=== PATIENT | female | born 2000 | race Caucasian/White ===

== ENCOUNTER 2021-07-14 08:08 | Emergency (ER) | payer BC, MEDICAID, OTHER ==
[~2021-07-14] VITALS: Ht 149.9 cm; Wt 127.0 kg
[2021-07-14] MEDS ORDERED: NS IV 1000 ML 1,000 ML IV STA ×2 (08:26→09:51)
[2021-07-14] MEDS ORDERED: KETOROLAC 30 MG/ML VIAL IVP STA (08:26)
[2021-07-14] MEDS ORDERED: diphenhydrAMINE 50 MG/ML INJ (BENADRYL) IVP STA (08:26)
[2021-07-14] MEDS ORDERED: METOCLOPRAMIDE INJ 10 MG/2 ML (REGLAN) IVP STA (08:26)
--- NOTE | 2021-07-14 08:33 | ED General ---
General Chief Complaint: Back Problems Stated Complaint: BACK PAIN; HEADACHE Source of Information: Patient History of Present Illness Date Seen by Provider: Jul 14, 2021 Time Seen by Provider: 08:10 Initial Comments 21-year-old female presenting with complaints of 2 days of severe left-sided headache with photophobia. She states that she has had headaches like this when she was younger and was told that they were migraines. She is adopted and states she does not know any other personal medical history because she was adopted. She also was removed from all medical coverage by her mom and she moved from [place] to [place]. She states that in 2020 she did have a head injury from when she was in [facility]. She had hit her head on a metal headboard. She denies any recent trauma to trigger her headache or back pain. She states that 2 days ago she was babysitting when her headache started. She has taken [id number] "pain reliever" but does not know that is in the medicine. She just came off of her menstrual cycle in the last week and it was normal for her. She denies pain or burning with urination. She has pain to the left flank going down to her LLQ and lower abdomen/suprapubic area. She denies any vaginal discharge, bleeding, dysuria, change in bowels or bladder, previous abdominal surgery. She has had nausea and felt that she throws up in her mouth when she burps but then she swallows it back down again. She had gone to Urgent Care yesterday and they gave her a shot of something for nausea, pain and a Benadryl shot. She stated that it made her tired and she fell asleep on her brother's floor and then at her mother's house. She woke up at 5 am feeling like her whole body was on fire and she went and soaked in the tub. She does not have a thermometer so she did not take her temperature. She was feeling a little dizzy yesterday but denies dizziness currently. Timing/Duration: 2-3 Days Severity: Severe Modifying Factors: worse with Other (bright lights make her headache worse) Associated Systoms: No Chest Pain, No Cough, No Diaphoresis, No Fever/Chills; Headaches (left sided); No Loss of Appetite, No Malaise; Nausea/Vomiting; No Rash, No Seizure, No Shortness of Air, No Syncope, No Weakness Allergies and Home Medications Allergies Coded Allergies: No Known Drug Allergies (Unverified , 07/14/21) Patient Home Medication List Home Medication List Reviewed: Yes Review of Systems Review of Systems Constitutional: see HPI; No chills, No diaphoresis; dizziness (yesterday and early this am); No fever EENTM: see HPI; No ear discharge, No ear pain, No blurred vision, No double vision, No vision loss, No epistaxis, No nose congestion Respiratory: no symptoms reported Cardiovascular: no symptoms reported Gastrointestinal: see HPI Genitourinary: see HPI Musculoskeletal: see HPI, back pain (left flank pain wrapping around to lower abdomen) Skin: no symptoms reported Psychiatric/Neurological: See HPI; Denies Numbness, Denies Paresthesia, Denies Weakness Hematologic/Lymphatic: Denies Blood Clots Past Sokqxue-Amndlz-Lymmxk Hx Past Medical History Surgery/Hospitalization HX: Migraine Headaches, Obesity Surgeries: No Physical Exam Vital Signs Vital Signs - First Documented 07/14/21 08:14 Temp 37.1 Pulse 122 Resp 18 B/P (MAP) 136/100 (112) Pulse Ox 98 O2 Delivery Room Air Capillary Refill : Height, Weight, BMI Height: '" Weight: lbs. oz. kg; BMI Method: General Appearance: No Apparent Distress, Obese HEENT: PERRL/EOMI, Pharynx Normal Neck: Full Range of Motion, Normal Inspection, Non Tender, Supple Respiratory: Chest Non Tender, Lungs Clear, Normal Breath Sounds, No Accessory Muscle Use, No Respiratory Distress Cardiovascular: Normal Peripheral Pulses, Tachycardia Gastrointestinal: Normal Bowel Sounds, No Pulsatile Mass, Soft; No Distended, No Guarding, No Rebound; Tenderness (complaint of pain to left flank and lower abdomen in LLQ and suprapubic area) Rectal: Deferred Back: No CVA Tenderness Extremity: Normal Capillary Refill, Normal Inspection, No Calf Tenderness, No Pedal Edema Neurologic/Psychiatric: Alert, Oriented x3, No Motor/Sensory Deficits, 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 Norm as Tested Skin: Normal Color, Warm/Dry; No Rash Progress/Results/Core Measures Suspected Sepsis SIRS Temperature: Pulse: Respiratory Rate: Laboratory Tests 07/14/21 08:44: White Blood Count 6.9 Blood Pressure / Mean: Laboratory Tests 07/14/21 08:44: Creatinine 0.76, Platelet Count 376, Total Bilirubin 0.5 Results/Orders Lab Results Laboratory Tests Test 07/14/21 08:44 07/14/21 09:11 Range/Units White Blood Count 6.9 4.3-11.0 10^3/uL Red Blood Count 4.91 3.80-5.11 10^6/uL Hemoglobin 12.5 11.5-16.0 g/dL Hematocrit 40 35-52 % Mean Corpuscular Volume 82 80-99 fL Mean Corpuscular Hemoglobin 26 25-34 pg Mean Corpuscular Hemoglobin Concent 31 L 32-36 g/dL Red Cell Distribution Width 14.6 H 10.0-14.5 % Platelet Count 376 130-400 10^3/uL Mean Platelet Volume 9.1 9.0-12.2 fL Immature Granulocyte % (Auto) 1 % Neutrophils (%) (Auto) 58 42-75 % Lymphocytes (%) (Auto) 31 12-44 % Monocytes (%) (Auto) 8 0-12 % Eosinophils (%) (Auto) 2 0-10 % Basophils (%) (Auto) 1 0-10 % Neutrophils # (Auto) 4.0 1.8-7.8 10^3/uL Lymphocytes # (Auto) 2.2 1.0-4.0 10^3/uL Monocytes # (Auto) 0.5 0.0-1.0 10^3/uL Eosinophils # (Auto) 0.1 0.0-0.3 10^3/uL Basophils # (Auto) 0.1 0.0-0.1 10^3/uL Immature Granulocyte # (Auto) 0.0 0.0-0.1 10^3/uL Neutrophils % (Manual) 48 % Lymphocytes % (Manual) 31 % Monocytes % (Manual) 6 % Eosinophils % (Manual) 1 % Basophils % (Manual) 1 % Band Neutrophils 5 % Atypical Lymphocytes 3 % Reactive Lymphocytes 5 % Platelet Estimate NORMAL Anisocytosis SLIGHT Blood Morphology Comment NORMAL Sodium Level 136 135-145 MMOL/L Potassium Level 3.8 3.6-5.0 MMOL/L Chloride Level 101 98-107 MMOL/L Carbon Dioxide Level 20 L 21-32 MMOL/L Anion Gap 15 H 5-14 MMOL/L Blood Urea Nitrogen 9 7-18 MG/DL Creatinine 0.76 0.60-1.30 MG/DL Estimat Glomerular Filtration Rate 114 BUN/Creatinine Ratio 12 Glucose Level 113 H 70-105 MG/DL Calcium Level 9.0 8.5-10.1 MG/DL Corrected Calcium 8.9 8.5-10.1 MG/DL Total Bilirubin 0.5 0.1-1.0 MG/DL Aspartate Amino Transf (AST/SGOT) 31 5-34 U/L Alanine Aminotransferase (ALT/SGPT) 36 0-55 U/L Alkaline Phosphatase 88 40-136 U/L Total Protein 7.5 6.4-8.2 GM/DL Albumin 4.1 3.2-4.5 GM/DL Lipase 24 8-78 U/L Serum Test, Qualitative NEGATIVE NEGATIVE Urine Color YELLOW Urine Clarity TURBID Urine pH 5.5 5-9 Urine Specific [place] >=1.030 1.016-1.022 Urine Protein NEGATIVE NEGATIVE Urine Glucose (UA) NEGATIVE NEGATIVE Urine Ketones NEGATIVE NEGATIVE Urine Nitrite NEGATIVE NEGATIVE Urine Bilirubin 1+ H NEGATIVE Urine Urobilinogen 0.2 < = 1.0 MG/DL Urine Leukocyte Esterase TRACE H NEGATIVE Urine RBC (Auto) TRACE-I H NEGATIVE Urine RBC NONE /HPF Urine WBC 2-5 /HPF Urine Squamous Epithelial Cells 10-25 H /HPF Urine Crystals PRESENT H /LPF Urine Amorphous Sediment MOD LILIANA URATES H /LPF Urine Bacteria FEW H /HPF Urine Casts PRESENT /LPF Urine Hyaline Casts RARE /LPF Urine Mucus LARGE H /LPF Urine Other CLUE CELLS NOTED /HPF Urine Culture Indicated NO My Orders Orders - MARIJA CORRAL MD Comprehensive Metabolic Panel (07/14/21 08:26) Lipase (07/14/21 08:26) Ua Culture If Indicated (07/14/21 08:26) Ed Iv/Invasive Line Start (07/14/21 08:26) Cbc With Automated Diff (07/14/21 08:26) Ct Abdomen/Pelvis Wo (07/14/21 08:26) Ct Head Wo (07/14/21 08:26) Ns Iv 1000 Ml (Sodium Chloride 0.9%) (07/14/21 08:26) Hcg,Qualitative Serum (07/14/21 08:26) Ketorolac Injection (Toradol Injection) (07/14/21 08:26) Metoclopramide Injection (Reglan Injecti (07/14/21 08:26) Diphenhydramine Injection (Benadryl Inje (07/14/21 08:26) Manual Differential (07/14/21 08:44) Ns Iv 1000 Ml (Sodium Chloride 0.9%) (07/14/21 09:51) Ceftriaxone 1 Gm Pre-Mix (Rocephin 1 Gm (07/14/21 10:13) Vital Signs/I&O 07/14/21 08:14 Temp 37.1 Pulse 122 Resp 18 B/P (MAP) 136/100 (112) Pulse Ox 98 O2 Delivery Room Air Capillary Refill : Progress Note #1: Progress Note With her general complaints and stating that she did not get relief with what sounds like typical migraine cocktail at Urgent care will check basic labs, urine, CT scan of head to look for mass, intracranial bleed, stroke, fracture, sinusitis. CT abdomen/pelvis to look for kidney stone, diverticulitis, pyelonephritis, cystitis, colitis, abdominal mass. For her left sided headache and left flank pain will give 1 L NS IVF for hydration, Toradol 30 mg IV for pain, Reglan 10 mg IV for nausea and migraine headache symptoms, Benadryl 25 mg IV for migraine headache symptoms and nausea. Progress Note #2: Time: 09:49 Progress Note CBC shows normal WBC count of 6.9 and Hgb 12.5. Her Chemistry panel does not show acute significant abnormality and has negative HCG. UA is concentrated with specific gravity >1.035. She has trace LE, bacteria and clue cells with 10-25 epithelial cells, crystals are present as well. will repeat NS 1 L IVF bolus for hydration while waiting on CT scans and see if she needs additional medicine for her headache and symptoms. Progress Note #3: Time: 10:19 Progress Note patient updated and she reports headache down to 6 out of 10 with medicine and nausea resolved. Feeling much better. Will have IVF infuse and give a 2nd Liter as the first liter was not restarted after she got up to go to the restroom and give a urine specimen. If she still needs additional medicine for pain will try decadron for pain from headache with 2nd Liter. Plan to treat signs of UTI and BV with rocephin 1 gm here in ED and discharge on keflex and flagyl. Give in formation about [facility] for follow up and to establish pcp. Diagnostic Imaging Diagonstic Imaging: CT Plain Films/CT/US/NM/MRI: abdomen, pelvis Comments [facility] [place] NAME: AMINATA MCDERMOTT [facility] REC#: [id number] PT STATUS: REG ER : 2000 PHYSICIAN: MARIJA CORRAL MD ADMIT DATE: 07/14/21/ER FS Draft Date of Exam:07/14/21 CT ABDOMEN/PELVIS WO PROCEDURE: CT abdomen and pelvis without contrast. TECHNIQUE: Multiple contiguous axial images were obtained through the abdomen and pelvis without the use of intravenous contrast. Auto Exposure Controls were utilized during the CT exam to meet ALARA standards for radiation dose reduction. INDICATION: Nausea and left-sided flank pain. No prior studies are available for comparison. FINDINGS: Lung bases are clear. The liver and gallbladder are unremarkable. There is no biliary ductal dilatation. Pancreas and spleen are unremarkable. No adrenal mass is detected. There appears to be a punctate nonobstructing calculus left kidney. Kidneys are otherwise unremarkable. There is no hydronephrosis. No ureteral or bladder calculi are seen. Aorta is nonaneurysmal. The small and large bowel loops are normal caliber. There is no obstruction. The appendix is unremarkable. No free fluid or fluid collection. No inflammatory changes are seen. The uterus is unremarkable. The bony structures appear nonacute. IMPRESSION: Tiny nonobstructing left renal calculus. The study is otherwise unremarkable. Dictated on workstation # [id number] Dict: 07/14/21 0951 Trans: 07/14/21 0956 [id number] Interpreted by: ALFA SINGH MD Electronically signed by: Reviewed: Reviewed by Tn Diagonstic Imaging: CT Plain Films/CT/US/NM/MRI: head Comments [facility] [place] NAME: AMINATA MCDERMOTT [facility] REC#: [id number] PT STATUS: REG ER : 2000 PHYSICIAN: MARIJA CORRAL MD ADMIT DATE: 07/14/21/ER FS Draft Date of Exam:07/14/21 CT HEAD WO PROCEDURE: CT head without contrast. TECHNIQUE: Multiple contiguous axial images were obtained through the brain without the use of intravenous contrast. Auto Exposure Controls were utilized during the CT exam to meet ALARA standards for radiation dose reduction. INDICATION: Left-sided headache and photophobia. No prior studies are available for comparison. Ventricles and sulci are within normal limits. No sulcal effacement or midline shift is identified. No acute intra-axial or extra-axial hemorrhage is detected. Cisterns are patent. Visualized paranasal sinuses are clear apart from some mucosal thickening of the left maxillary sinus. IMPRESSION: No acute intracranial process is detected. Dictated on workstation # [id number] Dict: 07/14/21 0949 Trans: 07/14/21 0952 [facility] [id number] Interpreted by: ALFA SINGH MD Electronically signed by: Reviewed: Reviewed by Me Departure Impression Primary Impression: Left-sided headache Additional Impressions: Acute left flank pain Cystitis without hematuria Bacterial vaginosis Disposition: HOME, SELF-CARE Condition: Improved Departure-Patient Inst. Decision time for Depature: 10:25 Referrals: NO,LOCAL PHYSICIAN (PCP) Primary Care Physician [facility] Call [phone] to get established with local provider for primary care Patient Instructions: Flank Pain ED, Bacterial Vaginosis ED, Urinary Tract Infection, Adult ED, Headache, Adult ED, Home Headache Remedies, How to Keep Track of Your Headaches Add. Discharge Instructions: Stay well hydrated and drink more water. Take full course of antibiotics for urine infection and bacterial overgrowth in bladder and vaginal area. Rest in a cool dark room and consider trying Excedrin Migraine to help with headache if it persists or returns. Establish care with a primary care provider in the clinic for follow up and con tinued care All discharge instructions reviewed with patient and/or family. Voiced understanding. Scripts Metronidazole (Metronidazole) 500 Mg Tablet 500 MG PO BID for Bacterial Vaginosis for 7 Days, #14 TAB 0 Refills Prov: MARIJA CORRAL MD 07/14/21 Cephalexin (Cephalexin) 500 Mg Tablet 500 MG PO TID for UTI for 5 Days, #15 TAB 0 Refills Prov: MARIJA CORRAL MD 07/14/21 MARIJA CORRAL MD Jul 14, 2021 08:33
[2021-07-14 08:54] LABS: BASOPHILS # (AUTO) 0.1 10^3/uL (0.0-0.1); BASOPHILS % (AUTO) 1 % (0-10); EOSINOPHILS # (AUTO) 0.1 10^3/uL (0.0-0.3); EOSINOPHILS % (AUTO) 2 % (0-10); HEMATOCRIT 40 % (35-52); HEMOGLOBIN 12.5 g/dL (11.5-16.0); LYMPHOCYTES # (AUTO) 2.2 10^3/uL (1.0-4.0); LYMPHOCYTES % (AUTO) 31 % (12-44); MEAN CORPUSCULAR HEMOGLOBIN 26 pg (25-34); MEAN CORPUSCULAR HGB CONC 31 g/dL (32-36); MEAN CORPUSCULAR VOLUME 82 fL (80-99); MEAN PLATELET VOLUME 9.1 fL (9.0-12.2); MONOCYTES # (AUTO) 0.5 10^3/uL (0.0-1.0); MONOCYTES % (AUTO) 8 % (0-12); NEUTROPHILS % (AUTO) 58 % (42-75); PLATELET COUNT 376 10^3/uL (130-400); WHITE BLOOD COUNT 6.9 10^3/uL (4.3-11.0)
[2021-07-14 09:15] LABS: NEUTROPHILS % (MANUAL) 48 %
[2021-07-14 09:16] LABS: ATYPICAL LYMPHOCYTES 3 %; BAND NEUTROPHILS 5 %; BASOPHILS % (MANUAL) 1 %; EOSINOPHILS % (MANUAL) 1 %; LYMPHOCYTES % (MANUAL) 31 %; MONOCYTES % (MANUAL) 6 %; PLATELET ESTIMATE NORMAL; RBC MORPH NORMAL; REACTIVE LYMPHOCYTES 5 %
[2021-07-14 09:16] LABS: CLARITY,URINE TURBID; COLOR,URINE YELLOW; GLUCOSE, URINE (UA) NEGATIVE (NEGATIVE); KETONES,URINE NEGATIVE (NEGATIVE); LEUKOCYTE ESTERASE ,URINE TRACE (NEGATIVE); NITRITE,URINE NEGATIVE (NEGATIVE); PH,URINE 5.5 (5-9); PROTEIN,URINE NEGATIVE (NEGATIVE)
[2021-07-14 09:17] LABS: ANISOCYTOSIS SLIGHT
[2021-07-14 09:19] LABS: CREATININE SERUM 0.76 MG/DL (0.60-1.30); POTASSIUM 3.8 MMOL/L (3.6-5.0)
[2021-07-14 09:20] LABS: ALBUMIN 4.1 GM/DL (3.2-4.5); BILIRUBIN,TOTAL 0.5 MG/DL (0.1-1.0); TOTAL PROTEIN 7.5 GM/DL (6.4-8.2)
[2021-07-14 09:37] LABS: AMORPHOUS SEDIMENT,UR MOD AMOR URATES /LPF; BACTERIA,URINE FEW /HPF; BILIRUBIN,URINE 1+ (NEGATIVE); HYALINE CASTS, URINE RARE /LPF
[2021-07-14 09:38] LABS: URINE OTHER CLUE CELLS NOTED /HPF
--- NOTE | 2021-07-14 09:52 | Diagnostic Imaging Report ---
PROCEDURE: CT head without contrast. TECHNIQUE: Multiple contiguous axial images were obtained through the brain without the use of intravenous contrast. Auto Exposure Controls were utilized during the CT exam to meet ALARA standards for radiation dose reduction. INDICATION: Left-sided headache and photophobia. No prior studies are available for comparison. Ventricles and sulci are within normal limits. No sulcal effacement or midline shift is identified. No acute intra-axial or extra-axial hemorrhage is detected. Cisterns are patent. Visualized paranasal sinuses are clear apart from some mucosal thickening of the left maxillary sinus. IMPRESSION: No acute intracranial process is detected. Dictated by: Dictated on workstation # [id number]
--- NOTE | 2021-07-14 09:57 | Diagnostic Imaging Report ---
PROCEDURE: CT abdomen and pelvis without contrast. TECHNIQUE: Multiple contiguous axial images were obtained through the abdomen and pelvis without the use of intravenous contrast. Auto Exposure Controls were utilized during the CT exam to meet ALARA standards for radiation dose reduction. INDICATION: Nausea and left-sided flank pain. No prior studies are available for comparison. FINDINGS: Lung bases are clear. The liver and gallbladder are unremarkable. There is no biliary ductal dilatation. Pancreas and spleen are unremarkable. No adrenal mass is detected. There appears to be a punctate nonobstructing calculus left kidney. Kidneys are otherwise unremarkable. There is no hydronephrosis. No ureteral or bladder calculi are seen. Aorta is nonaneurysmal. The small and large bowel loops are normal caliber. There is no obstruction. The appendix is unremarkable. No free fluid or fluid collection. No inflammatory changes are seen. The uterus is unremarkable. The bony structures appear nonacute. IMPRESSION: Tiny nonobstructing left renal calculus. The study is otherwise unremarkable. Dictated by: Dictated on workstation # [id number]
[2021-07-14] MEDS ORDERED: cefTRIAXone 1 GM PRE-MIX 50 ML IV STA (10:13)
[2021-07-14] MEDS ORDERED: CEPH500T PO (10:29)
[2021-07-14] MEDS ORDERED: METR-145 PO (10:29)
[2021-07-14 11:50] VITALS: BP 127/79
== END 2021-07-14 11:50 | disposition home or self-care (01) ==
LOC: ER FS 08:10
DX: G43.909 Migraine, unspecified, not intractable, without status migrainosus (principal); N30.00 Acute cystitis without hematuria; N76.0 Acute vaginitis; E66.01 Morbid (severe) obesity due to excess calories; Z32.02 Encounter for pregnancy test, result negative
CPT/HCPCS: 36415; 70450; 74176; 80053; 81000; 83690; 84703; 85007; 85027

== ENCOUNTER 2021-08-03 12:13 | Emergency (ER) | payer MEDICAID ==
[~2021-08-03] VITALS: Ht 149.8 cm; Wt 128.9 kg
[~2021-08-03 12:13] MED LIST: CEPH500T PO; METR-145 PO
--- NOTE | 2021-08-03 12:19 | ED GU-Female ---
General Stated Complaint: LT FLANK PAIN; VOMITING History of Present Illness Date Seen by Provider: Aug 03, 2021 Time Seen by Provider: 12:18 Initial Comments 21-year-old female with left flank pain started yesterday. She also has some urgency that started yesterday. She had an episode of vomiting this morning. She has dark reddish urine is started yesterday. She denies any fever or chills. Patient reports that the pain does not radiate. Allergies and Home Medications Allergies Coded Allergies: No Known Drug Allergies (Unverified , 07/14/21) Patient Home Medication List Home Medication List Reviewed: Yes Cephalexin (Cephalexin) 500 Mg Tablet, 500 MG PO TID Prescribed by: MARIJA CORRAL on 07/14/21 1029 Metronidazole (Metronidazole) 500 Mg Tablet, 500 MG PO BID Prescribed by: MARIJA CORRAL on 07/14/21 1029 Review of Systems Review of Systems Constitutional: No chills, No fever Respiratory: No cough, No short of breath Cardiovascular: No no symptoms reported Gastrointestinal: No abdominal pain Genitourinary: flank pain, hematuria, urgency Musculoskeletal: back pain Skin: no symptoms reported Psychiatric/Neurological: No Symptoms Reported Endocrine: No Symptoms Reported Hematologic/Lymphatic: No Symptoms Reported Past Efkczfg-Fbppff-Xrsivn Hx Past Medical History Surgery/Hospitalization HX: Migraine Headaches, Obesity Surgeries: No Physical Exam Vital Signs Vital Signs - First Documented 08/03/21 12:15 Temp 36.4 Pulse 120 Resp 16 B/P (MAP) 163/92 (115) Capillary Refill : Height, Weight, BMI Height: '" Weight: lbs. oz. kg; 56.00 BMI Method: General Appearance: WD/WN, no apparent distress Cardiovascular: normal peripheral pulses Respiratory: lungs clear, normal breath sounds Gastrointestinal: non tender, soft Back: CVA tenderness (L) Extremities: normal range of motion, non-tender Neurologic/Psychiatric: alert, normal mood/affect, oriented x 3 Skin: normal color, warm/dry Progress/Results/Core Measures Suspected Sepsis SIRS Temperature: Pulse: Respiratory Rate: Blood Pressure / Mean: Results/Orders Lab Results Laboratory Tests Test 08/03/21 12:15 Range/Units Urine Color RED H Urine Clarity TURBID Urine pH 8.0 5-9 Urine Specific [place] 1.020 1.016-1.022 Urine Protein 2+ H NEGATIVE Urine Glucose (UA) NEGATIVE NEGATIVE Urine Ketones TRACE H NEGATIVE Urine Nitrite POSITIVE H NEGATIVE Urine Bilirubin NEGATIVE NEGATIVE Urine Urobilinogen 1.0 < = 1.0 MG/DL Urine Leukocyte Esterase 1+ H NEGATIVE Urine RBC (Auto) 3+ H NEGATIVE Urine RBC TNTC H /HPF Urine WBC 2-5 /HPF Urine Squamous Epithelial Cells 0-2 /HPF Urine Crystals NONE /LPF Urine Bacteria FEW H /HPF Urine Casts NONE /LPF Urine Mucus NEGATIVE /LPF Urine Culture Indicated YES Urine Test NEGATIVE NEGATIVE My Orders Orders - MENSAH,RENEA L DO Ua Culture If Indicated (08/03/21 12:23) Ct Abdomen/Pelvis Wo (08/03/21 12:23) Hcg,Qualitative Urine (08/03/21 12:25) Urine Culture (08/03/21 12:15) Ondansetron Oral Dissolve Tab (Zofran (08/03/21 12:41) Vital Signs/I&O 08/03/21 12:15 Temp 36.4 Pulse 120 Resp 16 B/P (MAP) 163/92 (115) Capillary Refill : Progress Note : Progress Note Patient's urine is consistent with a urinary tract infection and hematuria. This is likely result of a recently passed urinary tract calculus. I will prescribe an antibiotic. She is to follow-up with her primary care provider in a couple days for recheck of her symptoms. Patient stable and discharged Diagnostic Imaging Diagonstic Imaging: CT Plain Films/CT/US/NM/MRI: abdomen, pelvis Comments Date of Exam:08/03/21 CT ABDOMEN/PELVIS WO PROCEDURE: CT abdomen and pelvis without contrast. TECHNIQUE: Multiple contiguous axial images were obtained through the abdomen and pelvis without the use of intravenous contrast. Auto Exposure Controls were utilized during the CT exam to meet ALARA standards for radiation dose reduction. INDICATION: Left-sided flank pain and left lower quadrant pain with hematuria. FINDINGS: There is subtle stranding and infiltration of the retroperitoneal fat peripheral to the course of the nondilated left ureter throughout its length. No opaque ureteral or bladder calculus is found. The bladder is grossly unremarkable but was low in volume at the time of the study. No radiopaque urinary tract stone. There is very mild ectasia of the left renal pelvis but no ricky hydronephrosis. The pattern is suspicious for a recently passed stone, correlate for resolution of symptoms. The uterus and adnexa are unremarkable. The unobstructed right kidney appears nonfocal and normal. The air-containing appendix is visualized and normal. There is no diverticulitis. The liver, gallbladder, bile ducts, spleen, adrenals, and pancreas are all unremarkable. IMPRESSION: 1. Stranding along the left periureteric fat throughout its length with no ricky hydronephrosis although mild ectasia of the left renal pelvis is present. No opaque stone. The pattern is suggestive of a recently passed calculus, correlate clinically. 2. No diverticulitis, appendicitis, or other acute appearing abnormalities. Reviewed: Reviewed by Me, Reviewed/Discussed Departure Impression Primary Impression: Acute cystitis with hematuria Disposition: HOME, SELF-CARE Condition: Stable Departure-Patient Inst. Referrals: NO,LOCAL PHYSICIAN (PCP/Family) Primary Care Physician Patient Instructions: Kidney Stone Diet, Kidney Stone, Adult ED, Urinary Tract Infection, Adult (DC) Add. Discharge Instructions: Please take antibiotic as prescribed. You likely had a recently passed kidney stone. Please follow-up with your primary care provider in approximately 5 to 7 days for repeat of your urine to ensure your infection clears Scripts Sulfamethoxazole/Trimethoprim (Bactrim Ds Tablet) 1 Each Tablet 1 EACH PO BID for 5 Days, #10 TAB Prov: RENEA MENSAH DO 08/03/21 RENEA MENSAH DO Aug 03, 2021 12:19
[2021-08-03 12:30] LABS: BILIRUBIN,URINE NEGATIVE (NEGATIVE); CLARITY,URINE TURBID; COLOR,URINE RED; GLUCOSE, URINE (UA) NEGATIVE (NEGATIVE); KETONES,URINE TRACE (NEGATIVE); LEUKOCYTE ESTERASE ,URINE 1+ (NEGATIVE); NITRITE,URINE POSITIVE (NEGATIVE); PROTEIN,URINE 2+ (NEGATIVE)
[2021-08-03 12:40] LABS: BACTERIA,URINE FEW /HPF; RBC,URINE TNTC /HPF; SQUAMOUS EPITHELIAL CELL,UR 0-2 /HPF
[2021-08-03] MEDS ORDERED: ONDANSETRON 4 MG (ZOFRAN) ORAL DISSOLVE TAB PO STA (12:41)
--- NOTE | 2021-08-03 13:05 | Diagnostic Imaging Report ---
PROCEDURE: CT abdomen and pelvis without contrast. TECHNIQUE: Multiple contiguous axial images were obtained through the abdomen and pelvis without the use of intravenous contrast. Auto Exposure Controls were utilized during the CT exam to meet ALARA standards for radiation dose reduction. INDICATION: Left-sided flank pain and left lower quadrant pain with hematuria. FINDINGS: There is subtle stranding and infiltration of the retroperitoneal fat peripheral to the course of the nondilated left ureter throughout its length. No opaque ureteral or bladder calculus is found. The bladder is grossly unremarkable but was low in volume at the time of the study. No radiopaque urinary tract stone. There is very mild ectasia of the left renal pelvis but no ricky hydronephrosis. The pattern is suspicious for a recently passed stone, correlate for resolution of symptoms. The uterus and adnexa are unremarkable. The unobstructed right kidney appears nonfocal and normal. The air-containing appendix is visualized and normal. There is no diverticulitis. The liver, gallbladder, bile ducts, spleen, adrenals, and pancreas are all unremarkable. IMPRESSION: 1. Stranding along the left periureteric fat throughout its length with no ricky hydronephrosis although mild ectasia of the left renal pelvis is present. No opaque stone. The pattern is suggestive of a recently passed calculus, correlate clinically. 2. No diverticulitis, appendicitis, or other acute appearing abnormalities. Dictated by: Dictated on workstation # [id number]
[2021-08-03] MEDS ORDERED: SULF1TAB38 PO (13:16)
[2021-08-03 13:20] VITALS: BP 136/83
== END 2021-08-03 13:20 | disposition home or self-care (01) ==
LOC: EDUNIT# 12:13 → ER FS 12:15
DX: N30.01 Acute cystitis with hematuria (principal); E66.9 Obesity, unspecified; Z68.43 Body mass index [BMI] 50.0-59.9, adult
CPT/HCPCS: 74176; 81000; 84703; 87077; 87088; 87186

== ENCOUNTER 2021-08-07 20:13 | Emergency (ER) | payer MEDICAID ==
[~2021-08-07] VITALS: Ht 149 cm; Wt 127.3 kg
[~2021-08-07 20:13] MED LIST changes: +SULF1TAB38 PO
[2021-08-07] MEDS ORDERED: KETOROLAC 30 MG/ML VIAL IM STA (20:24)
--- NOTE | 2021-08-07 20:24 | ED GU-Female ---
History of Present Illness Date Seen by Provider: Aug 07, 2021 Time Seen by Provider: 20:22 Initial Comments 21-year-old female presents with bilateral flank pain. Patient was seen by me on 08/03/2021. At that time she had work-up that showed an acute cystitis with hematuria that that culture was positive for E. coli. She was prescribed Bactrim which was an appropriate based on the culture. She had a CT that showed likely recent passed stone but no stone at that time. Patient states that when she went to get her antibiotic that it was "$4" so she did not get it because it was $4. Patient reports that since then her pain in her bilateral flanks is gotten worse. She has no report of fever, chills or other systemic complaints. Allergies and Home Medications Allergies Coded Allergies: No Known Drug Allergies (Unverified , 07/14/21) Patient Home Medication List Home Medication List Reviewed: Yes Cephalexin (Cephalexin) 500 Mg Tablet, 500 MG PO TID Prescribed by: MARIJA CORRAL on 07/14/21 1029 Metronidazole (Metronidazole) 500 Mg Tablet, 500 MG PO BID Prescribed by: MARIJA CORRAL on 07/14/21 1029 Sulfamethoxazole/Trimethoprim (Bactrim Ds Tablet) 1 Each Tablet, 1 EACH PO BID Prescribed by: RENEA MENSAH on 08/03/21 1316 Sulfamethoxazole/Trimethoprim (Bactrim Ds Tablet) 1 Each Tablet, 1 EACH PO BID Prescribed by: RENEA MENSAH on 08/07/21 2102 Review of Systems Review of Systems Constitutional: No chills, No fever Respiratory: no symptoms reported Cardiovascular: no symptoms reported Gastrointestinal: no symptoms reported Genitourinary: see HPI, flank pain Musculoskeletal: see HPI, back pain Skin: no symptoms reported Psychiatric/Neurological: No Symptoms Reported Endocrine: No Symptoms Reported Past Lbqglmb-Tzpkxh-Yaflcz Hx Past Medical History Surgery/Hospitalization HX: Denies Surgeries: No Physical Exam Vital Signs Vital Signs - First Documented 08/07/21 20:23 Temp 37.2 Pulse 129 Resp 17 B/P (MAP) 138/95 (109) Pulse Ox 100 O2 Delivery Room Air Capillary Refill : Height, Weight, BMI Height: '" Weight: lbs. oz. kg; 57.00 BMI Method: General Appearance: WD/WN, obese Cardiovascular: normal peripheral pulses, regular rate, rhythm Respiratory: lungs clear, normal breath sounds Gastrointestinal: non tender, soft Back: CVA tenderness (R), CVA tenderness (L) Neurologic/Psychiatric: alert, normal mood/affect, oriented x 3 Skin: normal color, warm/dry Progress/Results/Core Measures Suspected Sepsis SIRS Temperature: Pulse: Respiratory Rate: Laboratory Tests 08/07/21 20:40: White Blood Count 9.9 Blood Pressure / Mean: Laboratory Tests 08/07/21 20:40: Creatinine 0.71, Platelet Count 452H Results/Orders Lab Results Laboratory Tests Test 08/07/21 20:35 08/07/21 20:40 Range/Units Urine Color YELLOW Urine Clarity CLOUDY Urine pH 7.5 5-9 Urine Specific [place] 1.025 H 1.016-1.022 Urine Protein 2+ H NEGATIVE Urine Glucose (UA) NEGATIVE NEGATIVE Urine Ketones NEGATIVE NEGATIVE Urine Nitrite POSITIVE H NEGATIVE Urine Bilirubin NEGATIVE NEGATIVE Urine Urobilinogen 0.2 < = 1.0 MG/DL Urine Leukocyte Esterase 2+ H NEGATIVE Urine RBC (Auto) 1+ H NEGATIVE Urine RBC RARE /HPF Urine WBC 50-100 H /HPF Urine Squamous Epithelial Cells 2-5 /HPF Urine Crystals NONE /LPF Urine Bacteria FEW H /HPF Urine Casts NONE /LPF Urine Mucus NEGATIVE /LPF Urine Culture Indicated YES White Blood Count 9.9 4.3-11.0 10^3/uL Red Blood Count 4.59 3.80-5.11 10^6/uL Hemoglobin 12.0 11.5-16.0 g/dL Hematocrit 38 35-52 % Mean Corpuscular Volume 82 80-99 fL Mean Corpuscular Hemoglobin 26 25-34 pg Mean Corpuscular Hemoglobin Concent 32 32-36 g/dL Red Cell Distribution Width 15.7 H 10.0-14.5 % Platelet Count 452 H 130-400 10^3/uL Mean Platelet Volume 8.4 L 9.0-12.2 fL Immature Granulocyte % (Auto) 0 % Neutrophils (%) (Auto) 52 42-75 % Lymphocytes (%) (Auto) 38 12-44 % Monocytes (%) (Auto) 8 0-12 % Eosinophils (%) (Auto) 1 0-10 % Basophils (%) (Auto) 1 0-10 % Neutrophils # (Auto) 5.2 1.8-7.8 10^3/uL Lymphocytes # (Auto) 3.7 1.0-4.0 10^3/uL Monocytes # (Auto) 0.8 0.0-1.0 10^3/uL Eosinophils # (Auto) 0.1 0.0-0.3 10^3/uL Basophils # (Auto) 0.1 0.0-0.1 10^3/uL Immature Granulocyte # (Auto) 0.0 0.0-0.1 10^3/uL Sodium Level 136 135-145 MMOL/L Potassium Level 3.9 3.6-5.0 MMOL/L Chloride Level 101 98-107 MMOL/L Carbon Dioxide Level 24 21-32 MMOL/L Anion Gap 11 5-14 MMOL/L Blood Urea Nitrogen 6 L 7-18 MG/DL Creatinine 0.71 0.60-1.30 MG/DL Estimat Glomerular Filtration Rate 124 BUN/Creatinine Ratio 8 Glucose Level 102 70-105 MG/DL Calcium Level 9.0 8.5-10.1 MG/DL My Orders Orders - RENEA MENSAH DO Ketorolac Injection (Toradol Injection) (08/07/21 20:24) Ceftriaxone (Rocephin) (08/07/21 20:30) Lidocaine 1% Inj 20 Ml (Xylocaine 1% Inj (08/07/21 20:30) Basic Metabolic Panel (08/07/21 20:24) Cbc With Automated Diff (08/07/21 20:24) Ua Culture If Indicated (08/07/21 20:24) Urine Culture (08/07/21 20:35) Medications Given in ED Current Medications Medications Dose Ordered Sig/Scooter Route Start Time Stop Time Status Last Admin Dose Admin Ceftriaxone Sodium 1,000 mg ONCE ONCE IM 08/07/21 20:30 08/07/21 20:31 DC 08/07/21 20:43 1,000 MG Lidocaine HCl 2.1 ml ONCE ONCE INJ 08/07/21 20:30 08/07/21 20:31 DC 08/07/21 20:45 2.1 ML Vital Signs/I&O 08/07/21 08/07/21 20:23 21:24 Temp 37.2 Pulse 129 103 Resp 17 15 B/P (MAP) 138/95 (109) 130/87 Pulse Ox 100 99 O2 Delivery Room Air Room Air Capillary Refill : Progress Note : Progress Note Patient with urinary tract infection. Long discussion with her about the need to start her antibiotics and fill her prescription. Also discussed with patient [id number] to help with the dysuria such as Azo. She can use Tylenol and ibuprofen as needed. Patient stable and discharged Departure Impression Primary Impression: Acute cystitis with hematuria Disposition: HOME, SELF-CARE Condition: Stable Departure-Patient Inst. Referrals: NO,LOCAL PHYSICIAN (PCP/Family) Primary Care Physician Patient Instructions: Urinary Tract Infection, Adult (DC) Add. Discharge Instructions: Please fill and take your medications as prescribed Scripts Sulfamethoxazole/Trimethoprim (Bactrim Ds Tablet) 1 Each Tablet 1 EACH PO BID, #14 TAB Prov: RENEA MENSAH DO 08/07/21 RENEA MENSAH DO Aug 07, 2021 20:24
[2021-08-07] MEDS ORDERED: LIDOCAINE 1% INJ 20 ML VIAL INJ ONE (20:30)
[2021-08-07] MEDS ORDERED: cefTRIAXone 1,000 MG VIAL IM ONE (20:30)
[2021-08-07 20:41] LABS: BILIRUBIN,URINE NEGATIVE (NEGATIVE); CLARITY,URINE CLOUDY; COLOR,URINE YELLOW; GLUCOSE, URINE (UA) NEGATIVE (NEGATIVE); KETONES,URINE NEGATIVE (NEGATIVE); LEUKOCYTE ESTERASE ,URINE 2+ (NEGATIVE); NITRITE,URINE POSITIVE (NEGATIVE); PH,URINE 7.5 (5-9); PROTEIN,URINE 2+ (NEGATIVE)
[2021-08-07 20:46] LABS: RBC,URINE RARE /HPF
[2021-08-07 20:47] LABS: BACTERIA,URINE FEW /HPF; WBC,URINE 50-100 /HPF
[2021-08-07 20:50] LABS: BASOPHILS # (AUTO) 0.1 10^3/uL (0.0-0.1); BASOPHILS % (AUTO) 1 % (0-10); EOSINOPHILS # (AUTO) 0.1 10^3/uL (0.0-0.3); EOSINOPHILS % (AUTO) 1 % (0-10); HEMATOCRIT 38 % (35-52); LYMPHOCYTES # (AUTO) 3.7 10^3/uL (1.0-4.0); LYMPHOCYTES % (AUTO) 38 % (12-44); MEAN CORPUSCULAR HEMOGLOBIN 26 pg (25-34); MEAN CORPUSCULAR HGB CONC 32 g/dL (32-36); MEAN CORPUSCULAR VOLUME 82 fL (80-99); MEAN PLATELET VOLUME 8.4 fL (9.0-12.2); MONOCYTES # (AUTO) 0.8 10^3/uL (0.0-1.0); MONOCYTES % (AUTO) 8 % (0-12); NEUTROPHILS # (AUTO) 5.2 10^3/uL (1.8-7.8); NEUTROPHILS % (AUTO) 52 % (42-75); PLATELET COUNT 452 10^3/uL (130-400); WHITE BLOOD COUNT 9.9 10^3/uL (4.3-11.0)
[2021-08-07] MEDS ORDERED: SULF1TAB38 PO (21:02)
[2021-08-07 21:17] LABS: CREATININE SERUM 0.71 MG/DL (0.60-1.30); POTASSIUM 3.9 MMOL/L (3.6-5.0)
[2021-08-07 21:24] VITALS: BP 130/87
== END 2021-08-07 21:24 | disposition home or self-care (01) ==
LOC: EDUNIT# 20:13 → ER FS 20:14
DX: N30.01 Acute cystitis with hematuria (principal); E66.9 Obesity, unspecified; Z68.43 Body mass index [BMI] 50.0-59.9, adult
CPT/HCPCS: 36415; 80048; 81000; 85025; 87077; 87088; 99284

== ENCOUNTER 2021-09-18 19:26 | Emergency (ER) | payer MEDICAID ==
[~2021-09-18] VITALS: Ht 149.8 cm; Wt 127.3 kg
--- NOTE | 2021-09-18 20:57 | ED Abdominal Pain ---
General Chief Complaint: Trauma-Non Activation Stated Complaint: FELL Source of Information: Patient Exam Limitations: No Limitations History of Present Illness Date Seen by Provider: September 18, 2021 Time Seen by Provider: 19:30 Initial Comments Patient is a 21-year-old female who presents with some garza to extremities face and torso, right torso, back and knee pain after slipping on a wet dock several hours ago. Patient continued to swim in a boat throughout the afternoon but states she is concerned that she has upper neck and back pain with movement and radiating to the back of her knee. Pain is rated as mild to moderate. No medications or therapies taken prior to arrival. She denies shortness of breath. She denies loss of consciousness posterior neck pain nausea vomiting. She ambulates with no difficulty. No other acute symptoms or complaints Timing/Duration: 1-3 Hours Severity/Quality: Mild Location: Other Radiation: Other Activities at Onset: Other Modifying Factors: Improves With Other Associated Symptoms: Other Allergies and Home Medications Allergies Coded Allergies: No Known Drug Allergies (Unverified , 07/14/21) Patient Home Medication List Home Medication List Reviewed: Yes Cephalexin (Cephalexin) 500 Mg Tablet, 500 MG PO TID Prescribed by: MARIJA CORRAL on 07/14/21 1029 Metronidazole (Metronidazole) 500 Mg Tablet, 500 MG PO BID Prescribed by: MARIJA CORRAL on 07/14/21 1029 Sulfamethoxazole/Trimethoprim (Bactrim Ds Tablet) 1 Each Tablet, 1 EACH PO BID Prescribed by: RENEA MENSAH on 08/03/21 1316 Sulfamethoxazole/Trimethoprim (Bactrim Ds Tablet) 1 Each Tablet, 1 EACH PO BID Prescribed by: RENEA MENSAH on 08/07/212101 Review of Systems Review of Systems Constitutional: see HPI EENTM: See HPI Respiratory: See HPI Cardiovascular: See HPI Gastrointestinal: See HPI Genitourinary: See HPI Musculoskeletal: see HPI Skin: see HPI Endocrine: See HPI Hematologic/Lymphatic: See HPI Past Haxmrfx-Maxaqw-Cpasmt Hx Patient Social History Tobacco Use?: Yes Immunizations Up To Date Second COVID19 Vaccination Sahil: Pfizer Past Medical History Surgery/Hospitalization HX: Denies Surgeries: No Physical Exam Vital Signs Capillary Refill : Height/Weight/BMI Height: '" Weight: lbs. oz. kg; 57.00 BMI Method: General Appearance: WD/WN, no apparent distress HEENT: PERRL/EOMI, normal ENT inspection Neck: full range of motion, normal inspection, other Respiratory: lungs clear Cardiovascular: regular rate, rhythm Gastrointestinal: other (Body habitus limiting exam.) Neurologic/Psychiatric: no motor/sensory deficits, normal mood/affect, oriented x 3 Skin: other (First-degree sunburn to face, neck, upper extremities) Focused Exam Sepsis Stage: Ruled Out Departure Communication (Admissions) Patient with soft tissue injury injury from fall with standing. Despite injury. Patient was able to continue to pool and swim throughout the afternoon. Recommendations are for supportive care watchful waiting and PCP follow-up. Courtesy work note provided. Impression Primary Impression: Sunburn Additional Impressions: Thoracolumbar back pain Right shoulder pain Right knee pain Disposition: HOME, SELF-CARE Condition: Stable Departure-Patient Inst. Decision time for Depature: 20:55 Referrals: NO,LOCAL PHYSICIAN (PCP/Family) Primary Care Physician Patient Instructions: Sunburn (DC), Upper Back Pain, Knee Pain Add. Discharge Instructions: Your evaluated in the emergency department for fall from standing. Your symptoms are consistent with soft tissue strain and sunburn. Please take ibuprofen for pain and apply ice to affected areas. Stay home from work tomorrow and follow-up with local primary care doctor in 1 to 2 days if symptoms persist. All discharge instructions reviewed with patient and/or family. Voiced understanding. Work/School Note: Work Release Form Date Seen in the Emergency Department: September 18, 2021 Return to Work: Sep 20, 2021 JOSE ISABEL DO September 18, 2021 20:57
[2021-09-18] MEDS ORDERED: IBUPROFEN 600 MG (MOTRIN) TAB PO ONE (21:00)
[2021-09-18 21:03] VITALS: BP 120/86
== END 2021-09-18 21:03 | disposition home or self-care (01) ==
LOC: EDUNIT# 19:26 → ER FS 19:29
DX: L55.0 Sunburn of first degree (principal); M25.561 Pain in right knee; M25.511 Pain in right shoulder; M54.50 Low back pain, unspecified; M54.6 Pain in thoracic spine; W01.0XXA Fall on same level from slipping, tripping and stumbling without subsequent striking against object, initial encounter; Y92.62 Dock or shipyard as the place of occurrence of the external cause
CPT/HCPCS: 84703; 99282